=== PATIENT | female | born 1955 | race Hispanic/Latino ===

== ENCOUNTER 2020-04-08 11:38 | Emergency (ER) | payer OTHER ==
[2020-04-08 13:43] LABS: BASOPHILS % (AUTO) 0.6 % (0.0-5.0); HEMATOCRIT 36.1 % (36-48); LYMPHOCYTES % (AUTO) 35.9 % (21.0-51.0); MEAN CORPUSCULAR HEMOGLOBIN 26.5 pg (27.0-33.0); MEAN CORPUSCULAR HGB CONC 32.7 g/dL (32.0-36.0); MEAN CORPUSCULAR VOLUME 81.1 fL (79-99); MONOCYTES % (AUTO) 6.7 % (3.0-13.0); NEUTROPHILS % (AUTO) 53.5 % (40.0-77.0); PLATELET COUNT (AUTO) 251 K/uL (130-400); RED BLOOD CELL COUNT(AUTO) 4.45 MIL/uL (4.00-5.50); RED CELL DISTRIBUTION WIDTH 13.9 % (11.0-15.5); WHITE BLOOD COUNT (AUTO) 7.9 K/uL (4.8-10.8)
[2020-04-08] MEDS ORDERED: HYDROCODONE/ACETAMINOPHEN 10/325 MG TAB ONE (13:44)
[2020-04-08 13:47] LABS: APPEARANCE,URINE Clear (CLEAR); BILIRUBIN,URINE Negative (NEGATIVE); COLOR,URINE Yellow (YELLOW); GLUCOSE, URINE (UA) >=1000 mg/dL (NEGATIVE); KETONES,URINE Negative (NEGATIVE); LEUKOCYTE ESTERASE ,URINE Negative (NEGATIVE); NITRATE,URINE Positive (NEGATIVE); OCCULT BLOOD,URINE Trace (NEGATIVE); PH,URINE 5.5 (5.0-8.0); PROTEIN,URINE 300 mg/dL (NEGATIVE); UROBILINOGEN,URINE 0.2 mg/dL (0.2-1.0)
[2020-04-08 14:04] LABS: CREATININE 0.9 mg/dL (0.5-1.5); POTASSIUM 4.4 mmol/L (3.5-5.1)
[2020-04-08 14:09] LABS: ALBUMIN 3.4 g/dL (3.5-5.0); BILIRUBIN,TOTAL 0.3 mg/dL (0.2-1.0); TOTAL PROTEIN, SERUM 7.5 g/dL (6.0-8.3)
[2020-04-08 14:17] LABS: BACTERIA,URINE Moderate /HPF (None Seen); RBC,URINE 0-1 /HPF (0-1); WBC,URINE 0-1 /HPF (0-1)
[2020-04-08 14:18] LABS: SQUAMOUS EPITHELIAL CELL,UR Few /HPF (0-2)
== END 2020-04-08 17:15 | disposition home or self-care (01) ==
LOC: EDH 11:38
DX: M62.830 Muscle spasm of back (principal); M54.5 Low back pain; E11.9 Type 2 diabetes mellitus without complications; I10 Essential (primary) hypertension
CPT/HCPCS: 36415; 80053; 81001; 85025; 87077; 87088; 87186

== ENCOUNTER 2022-01-20 11:06 | Emergency (ER) | payer OTHER ==
[~2022-01-20] VITALS: Ht 152.4 cm; Wt 73.5 kg
[2022-01-20] MEDS ORDERED: ACETAMINOPHEN 500 MG TABLET PO ONE (12:00)
[2022-01-20 12:11] LABS: BASOPHILS % (AUTO) 0.8 % (0.0-5.0); EOSINOPHILS % (AUTO) 4.9 % (0.0-8.0); HEMATOCRIT 33.6 % (36-48); LYMPHOCYTES % (AUTO) 41.7 % (21.0-51.0); MEAN CORPUSCULAR HEMOGLOBIN 27.4 pg (27.0-33.0); MEAN CORPUSCULAR HGB CONC 34.8 g/dL (32.0-36.0); MEAN CORPUSCULAR VOLUME 78.7 fL (79-99); NEUTROPHILS % (AUTO) 45.4 % (40.0-77.0); PLATELET COUNT (AUTO) 202 K/uL (130-400); RED BLOOD CELL COUNT(AUTO) 4.27 MIL/uL (4.00-5.50); RED CELL DISTRIBUTION WIDTH 14.2 % (11.0-15.5); WHITE BLOOD COUNT (AUTO) 5.3 K/uL (4.8-10.8)
[2022-01-20 12:36] LABS: ALBUMIN 2.7 g/dL (3.5-5.0); CREATININE 1.3 mg/dL (0.5-1.5); POTASSIUM 3.9 mmol/L (3.5-5.1); TOTAL PROTEIN, SERUM 6.8 g/dL (6.0-8.3)
[2022-01-20] MEDS ORDERED: 0.9%NACL 1000ML 1,000 ML IV ONE (13:00)
[2022-01-20] MEDS ORDERED: INSULIN HUMULIN R 100 UNIT/ML 3ML IV ONE (13:00)
[2022-01-20 14:41] LABS: APPEARANCE,URINE CLEAR (CLEAR); BILIRUBIN,URINE NEGATIVE (NEGATIVE); COLOR,URINE YELLOW (YELLOW); GLUCOSE, URINE (UA) >=1000 mg/dL (NEGATIVE); KETONES,URINE NEGATIVE (NEGATIVE); LEUKOCYTE ESTERASE ,URINE NEGATIVE (NEGATIVE); NITRATE,URINE NEGATIVE (NEGATIVE); OCCULT BLOOD,URINE TRACE-INTACT (NEGATIVE); PROTEIN,URINE >=300 mg/dL (NEGATIVE); UROBILINOGEN,URINE 0.2 mg/dL (0.2-1.0)
[2022-01-20] MEDS ORDERED: HYDRALAZINE 20MG/ML VIAL IV ONE (15:00)
[2022-01-20 16:04] LABS: BACTERIA,URINE Few /HPF (None Seen); SQUAMOUS EPITHELIAL CELL,UR Few /HPF (0-2)
[2022-01-20 16:05] LABS: MUCUS,URINE Rare LPF (None Seen)
[2022-01-20 16:12] VITALS: BP 171/62
== END 2022-01-20 16:13 | disposition home or self-care (01) ==
LOC: EDH 11:06
DX: M79.604 Pain in right leg (principal); M79.605 Pain in left leg; R73.9 Hyperglycemia, unspecified; I10 Essential (primary) hypertension; M54.2 Cervicalgia; R10.13 Epigastric pain; M54.50 Low back pain, unspecified; M25.552 Pain in left hip; R42 Dizziness and giddiness; V49.49XA Driver injured in collision with other motor vehicles in traffic accident, initial encounter; Y93.89 Activity, other specified; Y92.413 State road as the place of occurrence of the external cause; Y99.8 Other external cause status
CPT/HCPCS: 99285; 80053; 83690; 85025; 82948 ×2; 81001; 36415; 71045; 70450; 72125; 72131; 96374; 96361; 96375; 93005; J1815; J7030; J0360

== ENCOUNTER 2022-03-27 12:04 | Emergency (ER) | payer OTHER ==
[~2022-03-27] VITALS: Ht 149.9 cm; Wt 72.6 kg
[2022-03-27 12:56] LABS: BASOPHILS % (AUTO) 0.4 % (0.0-5.0); EOSINOPHILS % (AUTO) 2.4 % (0.0-8.0); HEMATOCRIT 39.6 % (36-48); LYMPHOCYTES % (AUTO) 14.7 % (21.0-51.0); MEAN CORPUSCULAR HEMOGLOBIN 27.5 pg (27.0-33.0); MEAN CORPUSCULAR HGB CONC 34.1 g/dL (32.0-36.0); MEAN CORPUSCULAR VOLUME 80.7 fL (79-99); MONOCYTES % (AUTO) 4.4 % (3.0-13.0); PLATELET COUNT (AUTO) 214 K/uL (130-400); RED BLOOD CELL COUNT(AUTO) 4.91 MIL/uL (4.00-5.50); RED CELL DISTRIBUTION WIDTH 13.9 % (11.0-15.5)
[2022-03-27 13:13] LABS: ALBUMIN 2.6 g/dL (3.5-5.0); CREATININE 1.2 mg/dL (0.5-1.5); POTASSIUM 4.1 mmol/L (3.5-5.1)
[2022-03-27] MEDS ORDERED: KETOROLAC 15MG/ML VIAL (15MG/ML) IV ONE (14:30)
[2022-03-27] MEDS ORDERED: LIDOCAINE 5% TOPICAL PATCH TP ONE (14:30)
[2022-03-27] MEDS ORDERED: 0.9%NACL 1000ML 1,000 ML IV ONE (14:30)
[2022-03-27 15:00] LABS: APPEARANCE,URINE CLOUDY (CLEAR); BILIRUBIN,URINE NEGATIVE (NEGATIVE); COLOR,URINE YELLOW (YELLOW); GLUCOSE, URINE (UA) >=1000 mg/dL (NEGATIVE); KETONES,URINE NEGATIVE (NEGATIVE); LEUKOCYTE ESTERASE ,URINE 25 Leu/uL (NEGATIVE); NITRATE,URINE 2+ (NEGATIVE); OCCULT BLOOD,URINE SMALL (NEGATIVE); PH,URINE 6.5 (5.0-8.0); PROTEIN,URINE 600 mg/dL (NEGATIVE); UROBILINOGEN,URINE 0.2 mg/dL (0.2-1.0)
[2022-03-27 15:10] LABS: BACTERIA,URINE RARE /HPF (None Seen); MUCUS,URINE RARE LPF (None Seen); SQUAMOUS EPITHELIAL CELL,UR RARE /HPF (0-2); WBC,URINE 51-100 /HPF (0-1)
[2022-03-27 16:57] VITALS: BP 186/76
[2022-03-27] MEDS ORDERED: CEFTRIAXONE 1G VIAL ONE (17:14)
[2022-03-27] MEDS ORDERED: ACET-66 PO (17:17)
[2022-03-27] MEDS ORDERED: CEPH500B PO (17:17)
[2022-03-27] MEDS ORDERED: LIDO1ADH78 TP (17:17)
[2022-03-27] MEDS ORDERED: CEFTRIAXONE 1G VIAL IVP ONE (17:30)
== END 2022-03-27 18:10 | disposition home or self-care (01) ==
LOC: EDH 12:04
DX: E11.65 Type 2 diabetes mellitus with hyperglycemia (principal); N39.0 Urinary tract infection, site not specified; M25.511 Pain in right shoulder; R07.89 Other chest pain; E78.00 Pure hypercholesterolemia, unspecified; I10 Essential (primary) hypertension; Z98.890 Other specified postprocedural states
CPT/HCPCS: 99285; 74176; 96374; 71045 ×2; 96361; 96375; 84484; 80053; 83690; 85025; 87077; 87088; 87186; 81001; 36415; 93005; J7030; J0696; J1885

== ENCOUNTER 2022-04-30 02:15 | Emergency (ER) | payer MEDICARE, OTHER ==
[~2022-04-30] VITALS: Ht 149.9 cm; Wt 68.5 kg
[~2022-04-30 02:15] MED LIST: ACET-66 PO; CEPH500B PO; LIDO1ADH78 TP
[2022-04-30] MEDS ORDERED: CYCLOBENZAPRINE HCL 10 MG TABLET PO ONE (03:30)
[2022-04-30] MEDS ORDERED: GABAPENTIN 100 MG CAPSULE PO SCH (03:30)
[2022-04-30] MEDS ORDERED: IBUPROFEN 600 MG TABLET PO ONE (03:30)
[2022-04-30 04:29] LABS: APPEARANCE,URINE CLEAR (CLEAR); BILIRUBIN,URINE NEGATIVE (NEGATIVE); COLOR,URINE COLORLESS (YELLOW); GLUCOSE, URINE (UA) >=1000 mg/dL (NEGATIVE); KETONES,URINE NEGATIVE (NEGATIVE); LEUKOCYTE ESTERASE ,URINE NEGATIVE Leu/uL (NEGATIVE); NITRATE,URINE NEGATIVE (NEGATIVE); OCCULT BLOOD,URINE SMALL (NEGATIVE); PROTEIN,URINE 300 mg/dL (NEGATIVE); SQUAMOUS EPITHELIAL CELL,UR FEW /HPF (0-2); UROBILINOGEN,URINE 0.2 mg/dL (0.2-1.0)
[2022-04-30] MEDS ORDERED: LISINOPRIL 20 MG TABLET PO SCH (04:30)
[2022-04-30] MEDS ORDERED: CLONIDINE HCL 0.2 MG TABLET PO ONE (04:30)
[2022-04-30] MEDS ORDERED: CYCL-309 PO (04:31)
[2022-04-30] MEDS ORDERED: IBUP-1493 PO (04:31)
[2022-04-30] MEDS ORDERED: GABA300C PO (04:31)
[2022-04-30 05:02] VITALS: BP 141/63
== END 2022-04-30 05:08 | disposition home or self-care (01) ==
LOC: EDH 02:15
DX: M54.42 Lumbago with sciatica, left side (principal); I10 Essential (primary) hypertension; E11.9 Type 2 diabetes mellitus without complications; E78.00 Pure hypercholesterolemia, unspecified; Z98.890 Other specified postprocedural states; Z79.899 Other long term (current) drug therapy
CPT/HCPCS: 36415; 72100; 73502; 81001

== ENCOUNTER 2022-12-05 15:33 | Emergency (ER) | payer MEDICARE, OTHER ==
[~2022-12-05] VITALS: Ht 149.9 cm; Wt 59.9 kg
[~2022-12-05 15:33] MED LIST changes: +CYCL-309 PO; +GABA300C PO; +IBUP-1493 PO
[2022-12-05 16:07] LABS: BASOPHILS % (AUTO) 0.3 % (0.0-5.0); EOSINOPHILS % (AUTO) 3.5 % (0.0-8.0); HEMATOCRIT 35.3 % (36-48); LYMPHOCYTES % (AUTO) 15.3 % (21.0-51.0); MEAN CORPUSCULAR HEMOGLOBIN 26.4 pg (27.0-33.0); MEAN CORPUSCULAR HGB CONC 32.3 g/dL (32.0-36.0); MEAN CORPUSCULAR VOLUME 81.7 fL (79-99); MONOCYTES % (AUTO) 6.7 % (3.0-13.0); PLATELET COUNT (AUTO) 173 K/uL (130-400); RED BLOOD CELL COUNT(AUTO) 4.32 MIL/uL (4.00-5.50); RED CELL DISTRIBUTION WIDTH 14.4 % (11.0-15.5); WHITE BLOOD COUNT (AUTO) 6.3 K/uL (4.8-10.8)
[2022-12-05 16:29] LABS: CREATININE 2.1 mg/dL (0.5-1.5); POTASSIUM 3.6 mmol/L (3.5-5.1)
[2022-12-05] MEDS ORDERED: 0.9%NACL 1000ML 1,000 ML IV ONE (16:30)
[2022-12-05 16:38] LABS: ALBUMIN 3.1 g/dL (3.5-5.0); MAGNESIUM 1.4 mg/dL (1.80-2.40); TOTAL PROTEIN, SERUM 7.3 g/dL (6.0-8.3)
[2022-12-05] MEDS ORDERED: MAGNESIUM 2GM PREMIX 50ML 50 ML IV ONE ×2 (16:42→17:00)
[2022-12-05 16:51] LABS: APPEARANCE,URINE CLOUDY (CLEAR); BILIRUBIN,URINE NEGATIVE (NEGATIVE); COLOR,URINE YELLOW (YELLOW); GLUCOSE, URINE (UA) 150 mg/dL (NEGATIVE); KETONES,URINE NEGATIVE (NEGATIVE); LEUKOCYTE ESTERASE ,URINE 25 Leu/uL (NEGATIVE); NITRATE,URINE 1+ (NEGATIVE); OCCULT BLOOD,URINE SMALL (NEGATIVE); PROTEIN,URINE 600 mg/dL (NEGATIVE); UROBILINOGEN,URINE 0.2 mg/dL (0.2-1.0)
[2022-12-05 16:55] LABS: BACTERIA,URINE MOD /HPF (None Seen); MUCUS,URINE RARE LPF (None Seen); SQUAMOUS EPITHELIAL CELL,UR MOD /HPF (0-2)
[2022-12-05] MEDS ORDERED: CEFTRIAXONE 1G VIAL IVPB ONE (17:30)
[2022-12-05 18:50] VITALS: BP 137/40
[2022-12-05] MEDS ORDERED: AMOX500C2 PO (18:50)
== END 2022-12-05 18:57 | disposition home or self-care (01) ==
LOC: EDH 15:33
DX: J02.0 Streptococcal pharyngitis (principal); E83.42 Hypomagnesemia; E86.0 Dehydration; I10 Essential (primary) hypertension; E78.00 Pure hypercholesterolemia, unspecified; E11.9 Type 2 diabetes mellitus without complications; Z20.822 Contact with and (suspected) exposure to COVID-19; Z79.899 Other long term (current) drug therapy; Z98.890 Other specified postprocedural states
CPT/HCPCS: 99285; 96365; 71045; 87635; 96366; 96375; 83735; 84484; 80053; 85025; 87077; 87088; 87186; 87880; 87804 ×2; 83605; 81001; 36415; 93005; C9803; J3475; J0696

== ENCOUNTER → 2023-07-26 | Outpatient (CLI) | payer OTHER ==
[~2023-07-26] MED LIST changes: +AMOX500C2 PO
== END | disposition home or self-care (01) ==
LOC: RAH 07-13 14:52
PROVIDERS: ATTEND Internal Medicine Cardiovascular Disease
DX: I10 Essential (primary) hypertension (principal); R60.9 Edema, unspecified
CPT/HCPCS: 93306; 93970

== ENCOUNTER 2023-10-23 20:03 | Inpatient (IN) | payer OTHER ==
[~2023-10-23] VITALS: Ht 157.5 cm; Wt 61.9 kg
[~2023-10-23 20:03] MED LIST changes: +ROCURONIUM BROMIDE 10MG/1ML 5ML VL IV ONE
[2023-10-23 20:25] VITALS: PULSE 141; O2SAT 100
[2023-10-23] MEDS ORDERED: HYDRALAZINE 20MG/ML VIAL IV ONE (20:30)
[2023-10-23] MEDS: PROPOFOL 1000 MG/100 ML 100 ML IV SCH (20:44)
[2023-10-23 20:45] LABS: BASOPHILS # (AUTO) 0.12 K/uL (0.00-0.20); BASOPHILS % (AUTO) 0.7 % (0.0-5.0); EOSINOPHILS # (AUTO) 0.67 K/uL (0.00-0.70); EOSINOPHILS % (AUTO) 3.9 % (0.0-8.0); IMMATURE GRANULOCYTE ABSOLUTE 0.04 K/uL (0-1); LYMPHOCYTES # (AUTO) 10.4 K/uL (1.0-4.8); LYMPHOCYTES % (AUTO) 59.8 % (21.0-51.0); MEAN CORPUSCULAR HEMOGLOBIN 26.3 pg (27.0-33.0); MEAN CORPUSCULAR HGB CONC 32.6 g/dL (32.0-36.0); MEAN CORPUSCULAR VOLUME 80.6 fL (79-99); MONOCYTES # (AUTO) 0.7 K/uL (0.1-1.0); NEUTROPHILS # (AUTO) 5.5 K/uL (1.8-7.7); NEUTROPHILS % (AUTO) 31.4 % (40.0-77.0); PLATELET COUNT (AUTO) 310 K/uL (130-400); RED BLOOD CELL COUNT(AUTO) 4.22 MIL/uL (4.00-5.50); RED CELL DISTRIBUTION WIDTH 16.4 % (11.0-15.5); WHITE BLOOD COUNT (AUTO) 17.4 K/uL (4.8-10.8)
[2023-10-23] MEDS: PROPOFOL 1000 MG/100 ML 100 ML IV ONE (20:45)
[2023-10-23] MEDS: FENTANYL 1000MCG+NS 100ML 100 ML IV ONE (20:45)
[2023-10-23] MEDS: FENTANYL 1000MCG+NS 100ML 100 ML IV SCH (20:46)
[2023-10-23] MEDS: ASPIRIN 325MG TAB PO ONE (20:47)
[2023-10-23] MEDS: NITROGLYCERIN 1GM OINT 1 INCH/1GM TD ONE (20:49)
[2023-10-23] MEDS: FUROSEMIDE 40MG VIAL IVP ONE (20:49)
[2023-10-23] MEDS: ASPIRIN 300 MG SUPPOSITORY PR ONE (20:50)
[2023-10-23 20:55] LABS: CREATININE 2.3 mg/dL (0.5-1.0); POTASSIUM 4.1 mmol/L (3.5-5.1)
[2023-10-23] MEDS ORDERED: HYDRALAZINE 20MG/ML VIAL IV PRN (21:00)
[2023-10-23] MEDS ORDERED: ACETAMINOPHEN 325 MG TAB PO PRN (21:00)
[2023-10-23] MEDS ORDERED: ACETAMINOPHEN 650 MG SUPPOSITORY RC PRN (21:00)
[2023-10-23 21:02] LABS: ALBUMIN 2.4 g/dL (3.5-5.0); BILIRUBIN,TOTAL 0.3 mg/dL (0.2-1.0)
[2023-10-23 21:20] LABS: TOTAL PROTEIN, SERUM 8.1 g/dL (6.0-8.3)
[2023-10-23 21:34] LABS: APPEARANCE,URINE CLEAR (CLEAR); BILIRUBIN,URINE NEGATIVE (NEGATIVE); COLOR,URINE COLORLESS (YELLOW); GLUCOSE, URINE (UA) >=1000 mg/dL (NEGATIVE); KETONES,URINE NEGATIVE (NEGATIVE); LEUKOCYTE ESTERASE ,URINE NEGATIVE Leu/uL (NEGATIVE); NITRATE,URINE NEGATIVE (NEGATIVE); OCCULT BLOOD,URINE SMALL (NEGATIVE); PH,URINE 6.5 (5.0-8.0); PROTEIN,URINE 600 mg/dL (NEGATIVE); UROBILINOGEN,URINE 0.2 mg/dL (0.2-1.0)
[2023-10-23 21:35] LABS: B-TYPE NATRIURETIC PEPTIDE 1610 pg/mL (0-100)
[2023-10-23] MEDS: CEFEPIME HCL 2 GM VIAL IVPB SCH (21:36)
[2023-10-23] MEDS: LABETALOL 20MG SYG IV PRN (21:37)
[2023-10-23] MEDS: FUROSEMIDE 20MG VIAL IV ONE (21:37)
[2023-10-23 21:38] LABS: ADD UA MICROSCOPIC YES
[2023-10-23 21:40] LABS: ABG HCO3 18.6 mmol/L (21.0-28.0); ABG OXYGEN SATURATION 97.6 % (95.0-99.0); ABG PCO2 46 mmHg (32-45); ABG PH 7.221 (7.35-7.450); PO2, ARTERIAL BG 118.5 mmHg (83.0-108.0); VENT MODE, BG AC (ROOM AIR)
[2023-10-23 21:48] LABS: BACTERIA,URINE RARE /HPF (None Seen); MUCUS,URINE RARE LPF (None Seen); SQUAMOUS EPITHELIAL CELL,UR RARE /HPF (0-2)
[2023-10-23 21:57] LABS: SARS-CoV-2, RNA, NAAT NEGATIVE SARS CoV-2 (NEGATIVE)
[2023-10-23 21:59] LABS: INFLUENZA TYPE A Negative For Type A (NEGATIVE); INFLUENZA TYPE B Negative For Type B (NEGATIVE)
[2023-10-23] MEDS: NOREPINEPHRIN 4MG/NS 250ML 250 ML IV SCH (23:13)
[2023-10-24] VITALS (49 sets, daily range): BP systolic 83–178; BP diastolic 44–94; PULSE 52–87; RESP 22–32; O2SAT 98–100
[2023-10-24] MEDS: INSULIN HUMULIN R 100 UNIT/ML 3ML SQ SCH ×2 (01:22→12:35)
[2023-10-24 04:26] LABS: BASOPHILS # (AUTO) 0.06 K/uL (0.00-0.20); BASOPHILS % (AUTO) 0.7 % (0.0-5.0); EOSINOPHILS # (AUTO) 0.05 K/uL (0.00-0.70); EOSINOPHILS % (AUTO) 0.6 % (0.0-8.0); HEMATOCRIT 28.7 % (36-48); IMMATURE GRANULOCYTE ABSOLUTE 0.04 K/uL (0-1); LYMPHOCYTES % (AUTO) 23.1 % (21.0-51.0); MEAN CORPUSCULAR HEMOGLOBIN 25.9 pg (27.0-33.0); MEAN CORPUSCULAR HGB CONC 32.1 g/dL (32.0-36.0); MEAN CORPUSCULAR VOLUME 80.8 fL (79-99); MONOCYTES # (AUTO) 0.6 K/uL (0.1-1.0); MONOCYTES % (AUTO) 7.2 % (3.0-13.0); NEUTROPHILS # (AUTO) 5.7 K/uL (1.8-7.7); NEUTROPHILS % (AUTO) 67.9 % (40.0-77.0); PLATELET COUNT (AUTO) 235 K/uL (130-400); RED BLOOD CELL COUNT(AUTO) 3.55 MIL/uL (4.00-5.50); RED CELL DISTRIBUTION WIDTH 16.2 % (11.0-15.5); WHITE BLOOD COUNT (AUTO) 8.4 K/uL (4.8-10.8)
[2023-10-24 05:02] LABS: CREATININE 2.5 mg/dL (0.5-1.0); MAGNESIUM 1.8 mg/dL (1.80-2.40); PHOSPHORUS 4.9 mg/dL (2.5-4.9); POTASSIUM 5.2 mmol/L (3.5-5.1); THYROID STIMULATING HORMONE 2.42 uIU/mL (0.36-3.74)
[2023-10-24] MEDS ORDERED: KCL 20 MEQ ERTAB PO PRN (09:00)
[2023-10-24] MEDS ORDERED: GLUCAGON 1MG KIT 1 MG ML IM PRN (09:00)
[2023-10-24] MEDS ORDERED: DEXTROSE 50%-WATER 50 ML DISP.SYRIN IV PRN (09:00)
[2023-10-24] MEDS ORDERED: POTASSIUM CHLORIDE 10MEQ/100ML 100 ML IV PRN (09:00)
[2023-10-24] MEDS ORDERED: ROSU5TAB43 PO (09:02)
[2023-10-24] MEDS ORDERED: LOSA25TA41 PO (09:02)
[2023-10-24] MEDS ORDERED: AMLO-257 PO (09:02)
[2023-10-24] MEDS ORDERED: METF-446 PO (09:02)
[2023-10-24] MEDS ORDERED: GABA300T25 PO (09:02)
[2023-10-24] MEDS: POLYETHYLENE GLYCOL 3350 17 GM POWD.PACK PO SCH (09:09)
[2023-10-24] MEDS: PANTOPRAZOLE 40 MG/VIAL IVP SCH (09:09)
[2023-10-24] MEDS: ENOXAPARIN SODIUM 40 MG/0.4 ML SYRINGE SQ SCH (09:09)
[2023-10-24] MEDS: PROPOFOL 1000 MG/100 ML 100 ML IV PRN (09:13)
[2023-10-24] MEDS: INSULIN GLARGINE 100 UNITS/ML 10 ML VIAL SQ ONE (09:14)
[2023-10-24 09:35] LABS: INR 0.96 (0.85-1.15); PROTHROMBIN TIME 11.4 SEC (9.6-11.6)
[2023-10-24 09:37] LABS: PARTIAL THROMBOPLASTIN TIME 25.9 SEC (26.3-35.5)
[2023-10-24 09:43] LABS: ABG BASE EXCESS -5.8 mmol/L (-2.0-3.0); ABG HCO3 19.7 mmol/L (21.0-28.0); ABG OXYGEN SATURATION 98.2 % (95.0-99.0); ABG PCO2 39 mmHg (32-45); ABG PH 7.327 (7.35-7.450); CARBON MONOXIDE 0.4; DEVICE COMMENT LR; HHb 1.8; PO2, ARTERIAL BG 125.7 mmHg (83.0-108.0); VENT MODE, BG AC (ROOM AIR)
[2023-10-24] MEDS: FUROSEMIDE 40MG VIAL IV SCH (11:18)
[2023-10-24] MEDS: KAYEXALATE 15GM/60ML PO PRN (11:18)
[2023-10-24 13:52] LABS: AMPHET/METH SCREEN,URINE NEGATIVE (NEGATIVE); BARBITURATE SCREEN, URINE NEGATIVE (NEGATIVE); BENZODIAZEPINES SCREEN,URINE NEGATIVE (NEGATIVE); CANNABINOID SCREEN,URINE NEGATIVE (NEGATIVE); COCAINE SCREEN,URINE NEGATIVE (NEGATIVE); OPIATE SCREEN,URINE NEGATIVE (NEGATIVE); PHENCYCLIDINE SCREEN,URINE NEGATIVE (NEGATIVE)
[2023-10-24] MEDS: ENOXAPARIN SODIUM 80 MG/0.8 ML SQ SCH (14:00)
[2023-10-24] MEDS: ENOXAPARIN SODIUM 30 MG/0.3 ML SQ ONE (14:20)
[2023-10-24] MEDS: MIDAZOLAM 50MG-0.9% NS 50ML 50 ML IV SCH (15:21)
[2023-10-24] MEDS ORDERED: FENTANYL 1000MCG+NS 100ML 100 ML IV SCH (15:30)
[2023-10-24] MEDS: DOXYCYCLINE 100MG+NS 250ML 250 ML IV SCH (15:54)
[2023-10-24] MEDS: METRONIDAZOLE 500MG/100ML BAG 100 ML IVPB SCH (15:54)
[2023-10-24] MEDS: INSULIN GLARGINE 100 UNITS/ML 10 ML VIAL SQ SCH (21:00)
[2023-10-24] MEDS: 0.9%NACL 10ML VIAL IV SCH (21:20)
[2023-10-25] VITALS (91 sets, daily range): BP systolic 111–192; BP diastolic 50–118; PULSE 51–97; RESP 15–48; O2SAT 94–100
[2023-10-25 05:54] LABS: BASOPHILS # (AUTO) 0.03 K/uL (0.00-0.20); BASOPHILS % (AUTO) 0.5 % (0.0-5.0); EOSINOPHILS # (AUTO) 0.21 K/uL (0.00-0.70); EOSINOPHILS % (AUTO) 3.6 % (0.0-8.0); HEMATOCRIT 27.4 % (36-48); IMMATURE GRANULOCYTE ABSOLUTE 0.01 K/uL (0-1); LYMPHOCYTES # (AUTO) 2.1 K/uL (1.0-4.8); LYMPHOCYTES % (AUTO) 34.7 % (21.0-51.0); MEAN CORPUSCULAR HEMOGLOBIN 25.5 pg (27.0-33.0); MEAN CORPUSCULAR HGB CONC 32.5 g/dL (32.0-36.0); MEAN CORPUSCULAR VOLUME 78.5 fL (79-99); MONOCYTES # (AUTO) 0.5 K/uL (0.1-1.0); MONOCYTES % (AUTO) 7.6 % (3.0-13.0); NEUTROPHILS # (AUTO) 3.2 K/uL (1.8-7.7); NEUTROPHILS % (AUTO) 53.4 % (40.0-77.0); PLATELET COUNT (AUTO) 189 K/uL (130-400); RED BLOOD CELL COUNT(AUTO) 3.49 MIL/uL (4.00-5.50); RED CELL DISTRIBUTION WIDTH 16.3 % (11.0-15.5); WHITE BLOOD COUNT (AUTO) 5.9 K/uL (4.8-10.8)
[2023-10-25 06:14] LABS: ALBUMIN 1.7 g/dL (3.5-5.0); BILIRUBIN,TOTAL 0.4 mg/dL (0.2-1.0); CREATININE 2.4 mg/dL (0.5-1.0); TOTAL PROTEIN, SERUM 5.8 g/dL (6.0-8.3)
[2023-10-25 06:17] LABS: % IRON SATURATION 19.2 % (22-44)
[2023-10-25 06:22] LABS: POTASSIUM 2.9 mmol/L (3.5-5.1)
[2023-10-25 06:36] LABS: B-TYPE NATRIURETIC PEPTIDE 926 pg/mL (0-100)
[2023-10-25 06:46] LABS: ABG BASE EXCESS -0.9 mmol/L (-2.0-3.0); ABG HCO3 21.3 mmol/L (21.0-28.0); ABG OXYGEN SATURATION 97.2 % (95.0-99.0); ABG PCO2 29 mmHg (32-45); ABG PH 7.481 (7.35-7.450); PO2, ARTERIAL BG 85.8 mmHg (83.0-108.0); VENT MODE, BG AC-VC (ROOM AIR)
[2023-10-25] MEDS: MEROPENEM 500 MG in 0.9%NACL 100ML IV SCH (08:30)
[2023-10-25] MEDS: POLYETHYLENE GLYCOL 3350 17 GM POWD.PACK PO SCH (08:30)
[2023-10-25] MEDS ORDERED: COMPOUND IV MISC 1 EACH IVSOLN MISC PRN (08:30)
[2023-10-25] MEDS: ROSUVASTATIN CALCIUM 5 MG PO SCH (08:32)
[2023-10-25] MEDS ORDERED: POTASSIUM CHLORIDE 10MEQ/100ML 100 ML IV PRN (10:00)
[2023-10-25] MEDS: LINEZOLID 600 MG/ISO-OSM 300 ML IV SCH (10:09)
[2023-10-25] MEDS: POTASSIUM CHLORIDE 10MEQ/100ML 100 ML IV PRN (10:09)
[2023-10-25] MEDS: FUROSEMIDE 20MG VIAL IV SCH (10:30)
[2023-10-25] MEDS: ONDANSETRON 4MG INJ IVP PRN (12:25)
[2023-10-25] MEDS: METOPROLOL TARTRATE 25 MG TAB PO SCH (13:27)
[2023-10-25] MEDS: HYDRALAZINE HCL 10 MG TABLET PO SCH (20:20)
[2023-10-25] MEDS ORDERED: COMPOUND IV REFRIGERATED 1 EACH IVSOLN MISC PRN (21:30)
[2023-10-25] MEDS: IRON SUCROSE COMPLEX 300 MG in 0.9% NACL 250ML IV ONE (22:22)
[2023-10-26] VITALS (39 sets, daily range): BP systolic 107–170; BP diastolic 40–102; PULSE 57–68; RESP 15–37; O2SAT 95–97
[2023-10-26 04:05] LABS: BASOPHILS # (AUTO) 0.04 K/uL (0.00-0.20); BASOPHILS % (AUTO) 0.5 % (0.0-5.0); EOSINOPHILS # (AUTO) 0.23 K/uL (0.00-0.70); HEMATOCRIT 28.7 % (36-48); IMMATURE GRANULOCYTE ABSOLUTE 0.04 K/uL (0-1); LYMPHOCYTES # (AUTO) 2.1 K/uL (1.0-4.8); LYMPHOCYTES % (AUTO) 26.6 % (21.0-51.0); MEAN CORPUSCULAR HEMOGLOBIN 25.8 pg (27.0-33.0); MEAN CORPUSCULAR HGB CONC 32.8 g/dL (32.0-36.0); MEAN CORPUSCULAR VOLUME 78.8 fL (79-99); MONOCYTES # (AUTO) 0.6 K/uL (0.1-1.0); MONOCYTES % (AUTO) 7.7 % (3.0-13.0); NEUTROPHILS # (AUTO) 4.8 K/uL (1.8-7.7); NEUTROPHILS % (AUTO) 61.7 % (40.0-77.0); PLATELET COUNT (AUTO) 179 K/uL (130-400); RED BLOOD CELL COUNT(AUTO) 3.64 MIL/uL (4.00-5.50); WHITE BLOOD COUNT (AUTO) 7.8 K/uL (4.8-10.8)
[2023-10-26 04:19] LABS: ALBUMIN 1.8 g/dL (3.5-5.0); BILIRUBIN,TOTAL 0.3 mg/dL (0.2-1.0); CREATININE 2.5 mg/dL (0.5-1.0); TOTAL PROTEIN, SERUM 6.4 g/dL (6.0-8.3)
[2023-10-26 04:20] LABS: POTASSIUM 2.8 mmol/L (3.5-5.1)
[2023-10-26] MEDS: POTASSIUM CHLORIDE 10% ELIXIR 20 MEQ/15 ML UDCUP PO PRN (08:55)
[2023-10-26] MEDS: AMLODIPINE 5 MG TAB PO SCH (12:12)
[2023-10-26] MEDS: FUROSEMIDE 40 MG TABLET PO SCH (12:13)
[2023-10-26] MEDS ORDERED: FUROSEMIDE 40 MG TABLET PO SCH (17:00)
[2023-10-26] MEDS: IRON SUCROSE COMPLEX 300 MG in 0.9% NACL 250ML 250 ML IV ONE (20:59)
[2023-10-27] VITALS (10 sets, daily range): BP systolic 132–158; BP diastolic 51–72; PULSE 54–80; RESP 18–25; O2SAT 94–97
[2023-10-27 04:23] LABS: BASOPHILS # (AUTO) 0.06 K/uL (0.00-0.20); BASOPHILS % (AUTO) 0.8 % (0.0-5.0); EOSINOPHILS # (AUTO) 0.19 K/uL (0.00-0.70); EOSINOPHILS % (AUTO) 2.7 % (0.0-8.0); HEMATOCRIT 29.8 % (36-48); IMMATURE GRANULOCYTE ABSOLUTE 0.02 K/uL (0-1); LYMPHOCYTES # (AUTO) 1.8 K/uL (1.0-4.8); LYMPHOCYTES % (AUTO) 25.1 % (21.0-51.0); MEAN CORPUSCULAR HEMOGLOBIN 25.2 pg (27.0-33.0); MEAN CORPUSCULAR HGB CONC 32.2 g/dL (32.0-36.0); MEAN CORPUSCULAR VOLUME 78.2 fL (79-99); MONOCYTES # (AUTO) 0.5 K/uL (0.1-1.0); MONOCYTES % (AUTO) 6.9 % (3.0-13.0); NEUTROPHILS # (AUTO) 4.5 K/uL (1.8-7.7); NEUTROPHILS % (AUTO) 64.2 % (40.0-77.0); PLATELET COUNT (AUTO) 198 K/uL (130-400); RED BLOOD CELL COUNT(AUTO) 3.81 MIL/uL (4.00-5.50); RED CELL DISTRIBUTION WIDTH 16.1 % (11.0-15.5); WHITE BLOOD COUNT (AUTO) 7.1 K/uL (4.8-10.8)
[2023-10-27 04:45] LABS: ALBUMIN 1.8 g/dL (3.5-5.0); BILIRUBIN,TOTAL 0.3 mg/dL (0.2-1.0); CREATININE 2.7 mg/dL (0.5-1.0); TOTAL PROTEIN, SERUM 6.4 g/dL (6.0-8.3)
[2023-10-27] MEDS: GABAPENTIN PO SCH (08:37)
[2023-10-27] MEDS: KCL 20 MEQ ERTAB PO ONE (11:44)
[2023-10-27] MEDS: ISOSORBIDE MONONITRATE 20 MG TABLET PO SCH (21:48)
[2023-10-28] VITALS (8 sets, daily range): BP systolic 149–179; BP diastolic 58–77; PULSE 50–98; RESP 18–20; O2SAT 97–99
[2023-10-28 03:46] LABS: BASOPHILS # (AUTO) 0.05 K/uL (0.00-0.20); BASOPHILS % (AUTO) 0.8 % (0.0-5.0); EOSINOPHILS # (AUTO) 0.22 K/uL (0.00-0.70); EOSINOPHILS % (AUTO) 3.6 % (0.0-8.0); HEMATOCRIT 29.2 % (36-48); IMMATURE GRANULOCYTE ABSOLUTE 0.02 K/uL (0-1); LYMPHOCYTES # (AUTO) 2.3 K/uL (1.0-4.8); LYMPHOCYTES % (AUTO) 38.4 % (21.0-51.0); MEAN CORPUSCULAR HEMOGLOBIN 25.7 pg (27.0-33.0); MEAN CORPUSCULAR HGB CONC 32.5 g/dL (32.0-36.0); MEAN CORPUSCULAR VOLUME 78.9 fL (79-99); MONOCYTES # (AUTO) 0.5 K/uL (0.1-1.0); MONOCYTES % (AUTO) 7.9 % (3.0-13.0); PLATELET COUNT (AUTO) 217 K/uL (130-400)
[2023-10-28 03:56] LABS: CREATININE 2.7 mg/dL (0.5-1.0); MAGNESIUM 1.4 mg/dL (1.80-2.40); POTASSIUM 3.1 mmol/L (3.5-5.1)
[2023-10-28] MEDS: MAGNESIUM 2GM PREMIX 50ML 50 ML IV PRN (04:53)
[2023-10-28] MEDS: POTASSIUM CHLORIDE 10MEQ SR TAB PO PRN (04:54)
[2023-10-28] MEDS: KCL 20 MEQ ERTAB PO SCH (09:26)
[2023-10-28] MEDS: MAGNESIUM OXIDE 400 MG TABLET PO SCH (09:26)
[2023-10-28] MEDS: ASPIRIN 81 MG EC TAB PO SCH (09:26)
[2023-10-28] MEDS: HYDRALAZINE 25MG TABLET PO SCH (14:06)
[2023-10-29 03:25] VITALS: BP 161/80; PULSE 58; RESP 18
[2023-10-29 04:16] LABS: BASOPHILS # (AUTO) 0.04 K/uL (0.00-0.20); BASOPHILS % (AUTO) 0.7 % (0.0-5.0); EOSINOPHILS # (AUTO) 0.23 K/uL (0.00-0.70); EOSINOPHILS % (AUTO) 3.8 % (0.0-8.0); IMMATURE GRANULOCYTE ABSOLUTE 0.01 K/uL (0-1); LYMPHOCYTES # (AUTO) 2.6 K/uL (1.0-4.8); LYMPHOCYTES % (AUTO) 42.3 % (21.0-51.0); MEAN CORPUSCULAR HGB CONC 32.4 g/dL (32.0-36.0); MEAN CORPUSCULAR VOLUME 77.1 fL (79-99); MONOCYTES # (AUTO) 0.5 K/uL (0.1-1.0); MONOCYTES % (AUTO) 8.6 % (3.0-13.0); NEUTROPHILS # (AUTO) 2.7 K/uL (1.8-7.7); NEUTROPHILS % (AUTO) 44.4 % (40.0-77.0); PLATELET COUNT (AUTO) 239 K/uL (130-400); RED BLOOD CELL COUNT(AUTO) 3.76 MIL/uL (4.00-5.50); RED CELL DISTRIBUTION WIDTH 15.9 % (11.0-15.5); WHITE BLOOD COUNT (AUTO) 6.1 K/uL (4.8-10.8)
[2023-10-29 04:41] LABS: BILIRUBIN,TOTAL 0.2 mg/dL (0.2-1.0); CREATININE 2.4 mg/dL (0.5-1.0); POTASSIUM 3.2 mmol/L (3.5-5.1); TOTAL PROTEIN, SERUM 6.7 g/dL (6.0-8.3)
[2023-10-29 07:00] VITALS: BP 153/70; PULSE 62; RESP 18
[2023-10-29 08:00] VITALS: O2SAT 98
[2023-10-29] MEDS: METOPROLOL SUCCINATE 25 MG TAB.SR.24H PO SCH (10:21)
[2023-10-29] MEDS: HYDRALAZINE 25MG TABLET PO SCH (10:31)
[2023-10-29 11:00] VITALS: BP 155/62; PULSE 63; RESP 18
[2023-10-29 16:00] VITALS: BP 142/65; PULSE 63; RESP 20
== END 2023-10-29 16:45 | DRG 871 ==
LOC: EDH 20:03 → EDHIP 20:50 → 2CH 23:10 → 2AH 10-27 18:21
PROVIDERS: ADMIT Internal Medicine Pulmonary Disease; ATTEND Internal Medicine Pulmonary Disease
PROC: 5A09357 Assistance with Respiratory Ventilation, Less than 24 Consecutive Hours, Continuous Positive Airway Pressure (ICD-10-PCS; principal; 2023-10-23)
PROC: 0BH17EZ Insertion of Endotracheal Airway into Trachea, Via Natural or Artificial Opening (ICD-10-PCS; 2023-10-23)
PROC: 5A1945Z Respiratory Ventilation, 24-96 Consecutive Hours (ICD-10-PCS; 2023-10-23)
PROC: 02HV33Z Insertion of Infusion Device into Superior Vena Cava, Percutaneous Approach (ICD-10-PCS; 2023-10-24)
PROC: 5A1935Z Respiratory Ventilation, Less than 24 Consecutive Hours (ICD-10-PCS; 2023-10-25)
DX: A41.9 Sepsis, unspecified organism (principal); G93.41 Metabolic encephalopathy; J96.01 Acute respiratory failure with hypoxia; J18.9 Pneumonia, unspecified organism; N17.0 Acute kidney failure with tubular necrosis; I21.4 Non-ST elevation (NSTEMI) myocardial infarction; I50.43 Acute on chronic combined systolic (congestive) and diastolic (congestive) heart failure; I16.1 Hypertensive emergency; E87.20 Acidosis, unspecified; I13.0 Hypertensive heart and chronic kidney disease with heart failure and stage 1 through stage 4 chronic kidney disease, or unspecified chronic kidney disease; I42.9 Cardiomyopathy, unspecified; N18.4 Chronic kidney disease, stage 4 (severe); Z20.822 Contact with and (suspected) exposure to COVID-19; E11.65 Type 2 diabetes mellitus with hyperglycemia; E11.22 Type 2 diabetes mellitus with diabetic chronic kidney disease; R63.30 Feeding difficulties, unspecified; I50.82 Biventricular heart failure; D64.9 Anemia, unspecified; E78.00 Pure hypercholesterolemia, unspecified; E87.6 Hypokalemia; I65.21 Occlusion and stenosis of right carotid artery; K76.0 Fatty (change of) liver, not elsewhere classified; T50.2X5A Adverse effect of carbonic-anhydrase inhibitors, benzothiadiazides and other diuretics, initial encounter; Y92.89 Other specified places as the place of occurrence of the external cause; Z79.899 Other long term (current) drug therapy; Z90.49 Acquired absence of other specified parts of digestive tract
CPT/HCPCS: 31500; 36415; 36600; 71045; 71250; 74176; 76376; 76770; 80048; 80053; 80305; 81001; 82140; 82435; 82550; 82803; 82947; 82948; 83540; 83550; 83605; 83735; 83880; 84100; 84132; 84145; 84295; 84443; 84484; 85018; 85025; 85378; 85610; 85730; 87071; 87205; 87635; 87804; 93005; 93306; 93356; 93880; 93970; 94002; 94003; 96375; 96376; C1751; C1894; C9113; G0378; J0692; J1650; J1756; J1815; J1940; J2020; J2185; J2405; J2704; J3010; J3475; J3480; J3490; J7050; A4600; A9900

== ENCOUNTER → 2024-06-13 | Outpatient (CLI) | payer OTHER ==
[2024-06-13 13:27] LABS: CREATININE 3.8 mg/dL (0.5-1.0); POTASSIUM 5.4 mmol/L (3.5-5.1)
== END | disposition home or self-care (01) ==
LOC: LAB 09:36
PROVIDERS: ATTEND Internal Medicine Cardiovascular Disease
DX: I10 Essential (primary) hypertension (principal)
CPT/HCPCS: 36415; 80048; 83880